=== PATIENT | female | born 1980 | race Caucasian/White ===

== ENCOUNTER 2018-08-12 03:46 | Emergency (ER) | payer MEDICAID ==
[~2018-08-12] VITALS: Ht 160 cm; Wt 69.0 kg
[2018-08-12] MEDS ORDERED: LORAZEPAM 2MG/ML CPJ IV ONE (04:45)
[2018-08-12 05:09] LABS: EOSINOPHILS % 1.7 % (0.0-5.0); HEMATOCRIT. 29.9 % (36.0-48.0); LYMPHOCYTES % 17.4 % (20.0-50.0); MEAN CORPUSCULAR HEMOGLOBIN 30.3 pg (28.0-32.0); MEAN CORPUSCULAR VOLUME 90.9 fL (81.0-99.0); MEAN PLATELET VOLUME 8.9 fl (7.4-10.4); MONOCYTES % 9.4 % (2.0-8.0); NEUTROPHILS % 69.5 % (40.0-76.0); PLATELET 166 x1000/uL (130-400); RED BLOOD CELL COUNT 3.29 mill/uL (4.2-5.4)
[2018-08-12 05:15] LABS: CHLORIDE 106 mEq/L (98-107)
[2018-08-12 05:19] LABS: ETHANOL BLOOD < 10 mg/dL
[2018-08-12] MEDS ORDERED: OLANZAPINE 5MG TABLET PO STA (06:49)
[2018-08-12 09:25] LABS: CLARITY URINE CLOUDY (CLEAR); COLOR URINE YELLOW (YELLOW); KETONES URINE NEGATIVE (NEGATIVE); LEUKOCYTE ESTERASE URINE NEGATIVE (NEGATIVE); NITRITE URINE NEGATIVE (NEGATIVE); OCCULT BLOOD URINE NEGATIVE (NEGATIVE); PH URINE 5.5 (4.5-8.0); PROTEIN URINE NEGATIVE (NEGATIVE); SPECIFIC GRAVITY URINE 1.004 (1.005-1.030); UROBILINOGEN URINE 0.2 E.U./dL (0.2-1.0)
[2018-08-12 10:05] LABS: CANNABINOID URINE SCREEN NEGATIVE (NEGATIVE); OPIATES URINE SCREEN NEGATIVE (NEGATIVE)
[2018-08-12 10:06] LABS: *AMPHETAMINES SCREEN URINE NEGATIVE (NEGATIVE); PHENCYCLIDINE URINE SCREEN NEGATIVE (NEGATIVE)
[2018-08-12 10:08] LABS: METHADONE URINE SCREEN NEGATIVE (NEGATIVE)
[2018-08-12 10:09] LABS: *BARBITURATES SCREEN URINE NEGATIVE (NEGATIVE); *COCAINE SCREEN URINE NEGATIVE (NEGATIVE)
[2018-08-12 10:12] LABS: *BENZODIAZEPINES SCREEN URINE NEGATIVE (NEGATIVE)
[2018-08-12 15:00] VITALS: BP 112/62
== END 2018-08-12 15:30 | disposition home or self-care (01) ==
LOC: ER 03:46
DX: G47.00 Insomnia, unspecified (principal); R44.0 Auditory hallucinations; R51 Headache; F41.9 Anxiety disorder, unspecified
CPT/HCPCS: 36415; 80048; 80305; 80307; 80320; 80329; 81003; 81025; 84443; 85025; 96374; 99284; J2060; Z7610; G0480